=== PATIENT | female | born 1960 | race Two or more races ===

== ENCOUNTER 2019-01-22 06:29 | Day surgery (SDC) | payer OTHER ==
[2019-01-22] MEDS: TROPICAMIDE 1% 15 ML OPH OPER (07:11)
[2019-01-22] MEDS: MOXIFLOXACIN 0.5% 3 ML OPH OPER (07:11)
[2019-01-22] MEDS: CYCLOPENTOLATE 1% 2 ML OPH OPER (07:11)
[2019-01-22] MEDS: LACTATED RINGER'S 1,000 ML IV* (07:12)
[2019-01-22] MEDS: PHENYLephrine 2.5% 15 ML OPH OPER (07:12)
[2019-01-22] MEDS ORDERED: TETRACAINE 0.5% 4 ML OPH (07:49)
[2019-01-22] MEDS ORDERED: DIPHENHYDRAMINE 50 MG INJ IV (08:00)
[2019-01-22] MEDS ORDERED: TRIMETHOBENZAMIDE 100 MG/ML VIAL IM (08:00)
[2019-01-22] MEDS ORDERED: EPHEDrine SULFATE 50 MG/5 ML SYG IV (08:00)
[2019-01-22] MEDS ORDERED: OXYCODONE/ACETAMINOPHEN (5/325) TAB PO ×2 (08:00)
[2019-01-22] MEDS ORDERED: LABETALOL HCL 20MG INJ IV (08:00)
[2019-01-22] MEDS ORDERED: ALBUTEROL 0.083% (NEB) 2.5 MG/3 ML AMP HHN (08:00)
[2019-01-22] MEDS ORDERED: hydrALAzine 20 MG INJ IV (08:00)
[2019-01-22] MEDS ORDERED: FENTAnyl 50 MCG/ML VIAL IV ×3 (08:00)
[2019-01-22] MEDS ORDERED: MEPERIDINE 25 MG INJ IV (08:00)
[2019-01-22] MEDS ORDERED: IPRATROPIUM (NEB) 0.5 MG/2.5 ML AMP HHN (08:00)
[2019-01-22] MEDS ORDERED: HYDROmorphONE 1 MG/5 ML IV SYRINGE IV ×3 (08:00)
[2019-01-22] MEDS ORDERED: ONDANSETRON 4 MG INJ IV (08:00)
[2019-01-22] MEDS ORDERED: MIDAZOLAM 1 MG/ML 2 ML INJ IV (08:00)
[2019-01-22] MEDS ORDERED: TOBRAMYCIN/DEXAMETH 3.5 GM OPH OINT (08:22)
[2019-01-22] MEDS ORDERED: ONDANSETRON 4 MG INJ (08:51)
[2019-01-22] MEDS ORDERED: FENTAnyl 50 MCG/ML VIAL (08:51)
[2019-01-22] MEDS: EPINEPHrine 1 MG INJ (08:59)
[2019-01-22] MEDS: LIDOCAINE 1% (MPF) 10 ML INJ (08:59)
[2019-01-22] MEDS ORDERED: KETOROLAC 30 MG INJ (09:19)
[2019-01-22] MEDS ORDERED: TIMOLOL MALEATE/PF 0.5% OCCUDOSE (0.3 ML) (09:31)
== END 2019-01-22 10:50 | disposition home or self-care (01) ==
LOC: SDS 06:29
DX: H25.041 Posterior subcapsular polar age-related cataract, right eye (principal); E78.5 Hyperlipidemia, unspecified
CPT/HCPCS: 66984